=== PATIENT | male | born 1995 | race African-American/Black ===

== ENCOUNTER 2018-11-20 23:49 | Emergency (ER) | payer OTHER ==
[~2018-11-20] VITALS: Ht 167.6 cm; Wt 68.0 kg
[2018-11-20 23:49] VITALS: BP 144/83
[~2018-11-20 23:49] MED LIST: ALBU2.5V8 INH
[2018-11-21] MEDS ORDERED: HYDR-3164 PO (00:30)
[2018-11-21] MEDS ORDERED: SULF1TAB23 PO (00:30)
[2018-11-21] MEDS ORDERED: HYDROcodone/APAP 5/325MG 1 TAB TABLET PO ONE (00:30)
[2018-11-21] MEDS ORDERED: NAPROXEN 500 MG TABLET PO ONE (00:30)
[2018-11-21] MEDS ORDERED: NEOMY/BACITR/POLYMYXIN OINT PACKET. TP ONE (00:30)
--- NOTE | 2018-11-21 00:30 | PHYS DOC ---
Past Medical History Past Medical History: Asthma Past Surgical History: Tonsillectomy Alcohol Use: None Drug Use: None Adult General Chief Complaint Chief Complaint: ANIMAL BITE HPI HPI Patient is a 22 year old right handed male who presents with dog bites to the left hand. Patient got bit with family dog. He is reporting 10 out of 10 left hand pain described as throbbing and constant worse on range of motion. He states the dog is up-to-date with its shots. He states he is up-to-date with his tetanus. Review of Systems Review of Systems Constitutional: Denies fever or chills [] Musculoskeletal: Denies back pain or joint pain [] Integument: Reports dog bites to the left hand Neurologic: Denies headache, focal weakness or sensory changes [] All other systems were reviewed and found to be within normal limits, except as documented in this note. Current Medications Current Medications Current Medications Medications (Trade) Dose Ordered Sig/Felisha Start Time Stop Time Status Last Admin Dose Admin Acetaminophen/ Hydrocodone Bitart (Lortab 5/325) 2 tab 1X ONCE 11/21/18 00:30 11/21/18 00:31 11/20/18 23:59 2 TAB Naproxen (Naprosyn) 500 mg 1X ONCE 11/21/18 00:30 11/21/18 00:31 11/20/18 23:59 500 MG Neomycin/ Polymyxin/ Bacitracin (Triple Antibiotic Ointment) 1 pkt 1X ONCE 11/21/18 00:30 11/21/18 00:31 Allergies Allergies Allergies Coded Allergies Type Severity Reaction Last Updated Verified Fish Containing Products Allergy Unknown 07/02/14 No Physical Exam Physical Exam Constitutional: Well developed, well nourished, no acute distress, non-toxic appearance. [] Skin: See extremity Back: No tenderness, no CVA tenderness. [] Extremities: Left hand with no obvious deformity. Multiple superficial dog bites noted on the left dorsal and ventral hand including fingers. Lacerations are too many to count but none of them is deep along enough to require stitches. Neurovascular exam is intact to the left upper extremity. +2 left radial pulse. Cap refill less than 2 seconds the left fingers. Neurologic: Alert and oriented X 3, normal motor function, normal sensory function, no focal deficits noted. [] Psychologic: Affect normal, judgement normal, mood normal. [] Current Patient Data Vital Signs Vital Signs Date Time Temp Pulse Resp B/P (MAP) Pulse Ox O2 Delivery O2 Flow Rate FiO2 11/20/18 23:59 20 Room Air 11/20/18 23:49 99.0 95 144/83 (103) 99 99.0 EKG EKG [] Radiology/Procedures Radiology/Procedures [] Course & Med Decision Making Course & Med Decision Making Pertinent Labs and Imaging studies reviewed. (See chart for details) This is a 22-year-old male patient presenting to the ED today with dog bites to the left hand. Tetanus up-to-date. Left hand x-rays are negative for any acute findings. The dog bites were cleaned in the emergency room, Neosporin applied, clean dressing applied. Discharged on Augmentin. Provided return precautions. Dragon Disclaimer Dragon Disclaimer This electronic medical record was generated, in whole or in part, using a voice recognition dictation system. Departure Departure Impression: Primary Impression: Dog bite of left hand Disposition: HOME, SELF-CARE Condition: STABLE Referrals: NO PCP (PCP) Follow-up with your doctor in 1-2 weeks Patient Instructions: Animal Bite Additional Instructions: You have dog bites to the left hand. Keep the areas clean and dry. Apply Neosporin to the areas twice a day. Please take the prescribed antibiotics until completed. Follow-up with your own doctor in 1-2 weeks. Monitor the area for any worsening condition including increased redness, warmth, yellow drainage from the areas and return to the ED if they occur. Scripts Hydrocodone/Apap 5-325 (NORCO 5-325 TABLET) 1 Each Tablet 1 TAB PO Q6HRS, #10 TAB Prov: KEILA NDIAYE APRN 11/21/18 Sulfamethoxazole/Trimethoprim (BACTRIM 400-80 MG TABLET) 1 Each Tablet 1 TAB PO BID, #20 TAB Prov: KEILA NDIAYE APRN 11/21/18 Problem Qualifiers Primary Impression: Dog bite of left hand Encounter type: initial encounter Qualified Codes: S61.452A - Open bite of left hand, initial encounter; W54.0XXA - Bitten by dog, initial encounter KEILA NDIAYE APRN Nov 21, 2018 00:30
--- NOTE | 2018-11-21 09:26 | RAD ---
Left hand x-rays 3 views HISTORY: Dog bite of the left hand puncture wound. FINDINGS: Soft tissue emphysema related to penetrating injury at the dorsal hand as well as adjacent of the fifth metacarpal as well as soft tissue emphysema between the third through fifth MCP joints. No fracture or dislocation. No periosteal reaction or lytic bone destruction to suggest osteomyelitis. IMPRESSION: No acute osseous injury. Soft tissue injury as described above. Electronically signed by: Keyur Chatterjee MD (11/21/2018 9:23 AM) [facility]
== END 2018-11-21 00:43 | disposition home or self-care (01) ==
LOC: ER 11-21 00:33
DX: S61.452A Open bite of left hand, initial encounter (principal); J45.909 Unspecified asthma, uncomplicated; Z91.013 Allergy to seafood; W54.0XXA Bitten by dog, initial encounter; Y93.89 Activity, other specified; Y92.89 Other specified places as the place of occurrence of the external cause; Y99.8 Other external cause status
CPT/HCPCS: 73130; 99283; 99284

== ENCOUNTER 2019-07-30 21:27 | Emergency (ER) | payer OTHER ==
[~2019-07-30] VITALS: Ht 167.6 cm; Wt 65.9 kg
[~2019-07-30 21:27] MED LIST changes: +HYDR-3164 PO; +SULF1TAB23 PO
[2019-07-30 21:35] VITALS: BP 158/71
[2019-07-30] MEDS ORDERED: ALBUTEROL SULFATE 2.5 MG/3 ML NEBU. NEB ONE (22:30)
--- NOTE | 2019-07-30 23:30 | PHYS DOC ---
Past Medical History Past Medical History: Asthma (TAVO LENNON APRN) Past Surgical History: Tonsillectomy (TAVO LENNON APRN) Smoking Status: Never Smoker Alcohol Use: None Drug Use: None (TAVO LENNON APRN) Attending Signature I have participated in the care of this patient and I have reviewed and agree with all pertinent clinical information above including history, exam, and recommendations. (JOSUE SCHILLING MD) Adult General Chief Complaint Chief Complaint: SHORTNESS OF BREATH HPI HPI Patient is a 23 year old AA male who presents to the emergency department with complaints of shortness of breath. Patient states he has asthma and he does not have his inhaler at this time. He reports that the shortness of breath and wh eezing began last night. Patient denies any fever, ear pain, sore throat, nausea, vomiting, diarrhea, abdominal pain, body aches, or ear pain. Currently, he denies any chest pain or palpitations. Patient denies any pain at this time. (TAVO LENNON APRN) Review of Systems Review of Systems All other ROS is negative unless otherwise noted in HPI. (TAVO LENNON APRN) Current Medications Current Medications Current Medications Medications (Trade) Dose Ordered Sig/Felisha Start Time Stop Time Status Last Admin Dose Admin Albuterol Sulfate (Ventolin Neb Soln) 2.5 mg 1X ONCE 07/30/19 22:30 07/30/19 22:31 DC 07/30/19 22:19 2.5 MG Albuterol/ Ipratropium (Duoneb) 3 ml 1X ONCE 07/30/19 23:45 07/30/19 23:46 DC 07/30/19 23:40 3 ML Methylprednisolone Sodium Succinate (SOLU-Medrol 125MG VIAL) 125 mg 1X ONCE 07/30/19 23:45 07/30/19 23:46 DC 07/30/19 23:34 125 MG (JOSUE SCHILLING MD) Allergies Allergies Allergies Coded Allergies Type Severity Reaction Last Updated Verified Fish Containing Products Allergy Intermediate 07/30/19 No (JOSUE SCHILLING MD) Physical Exam Physical Exam Constitutional: Well developed, well nourished, no acute distress, non-toxic appearance. [] HENT: Normocephalic, atraumatic, bilateral external ears normal, oropharynx moist, no oral exudates, nose normal. [] Eyes: PERRLA, EOMI, conjunctiva normal, no discharge. [] Neck: Normal range of motion, no stridor. [] Cardiovascular:Heart rate regular rhythm Lungs & Thorax: Bilateral breath sounds expiratory wheezes throughout all ashby and diminished posterior bases bilaterally, no retractions, regular rate and speaks full sentences [] Skin: Warm, dry, no erythema, no rash. [] Back: No tenderness Extremities: No cyanosis, ROM intact Neurologic: Alert and oriented X 3, no focal deficits noted. [] Psychologic: Affect normal, judgement normal, mood normal. [] (TAVO LENNON APRN) Current Patient Data Vital Signs Vital Signs Date Time Temp Pulse Resp B/P (MAP) Pulse Ox O2 Delivery O2 Flow Rate FiO2 07/31/19 00:00 108 98 Room Air 07/30/19 21:35 98.1 16 158/71 (100) 98.1 (JOSUE SCHILLING MD) EKG EKG [] (TAVO LENNON APRN) Radiology/Procedures Radiology/Procedures [] (TAVO LENNON APRN) Course & Med Decision Making Course & Med Decision Making Pertinent Labs and Imaging studies reviewed. (See chart for details) [] (TAVO LENNON APRN) Dragon Disclaimer Dragon Disclaimer This electronic medical record was generated, in whole or in part, using a voice recognition dictation system. (TAVO LENNON APRN) Departure Departure Impression: Primary Impression: Asthma exacerbation Disposition: 01 HOME, SELF-CARE Condition: STABLE Referrals: NO PCP (PCP) Patient Instructions: Asthma Prevention-Brief, Asthma, Acute Bronchospasm Additional Instructions: Fill prescription(s) and use as directed. Avoid airway triggers such as smoke, fragrance, dust, and pollen. May take [id number] cough suppressants as needed. Follow-up with your primary care doctor this week, return to the ER if s ymptoms worsen. Scripts Prednisone (PREDNISONE) 50 Mg Tablet 1 TAB PO DAILY for 4 Days, #4 TAB 0 Refills Prov: TAVO LENNON APRN 07/31/19 Albuterol Sulfate (Proair Hfa) 8.5 Gm Hfa.aer.ad 2 PUFF IH PRN Q4-6HRS PRN for wheezing for 21 Days, #1 INHALER 0 Refills Prov: TAVO LENNON APRN 07/31/19 Problem Qualifiers Primary Impression: Asthma exacerbation Asthma severity: mild Asthma persistence: intermittent Qualified Codes: J45.21 - Mild intermittent asthma with (acute) exacerbation TAVO LENNON APRN Jul 30, 2019 23:30 JOSUE SCHILLING MD Jul 31, 2019 01:48
[2019-07-30] MEDS ORDERED: methylPREDNISolone SOD SUCC PF 125 MG/2 ML VIAL. IM ONE (23:45)
[2019-07-30] MEDS ORDERED: IPRATRPIUM/ALBUTEROL 0.5/2.5MG 3 ML NEBU. NEB ONE (23:45)
[2019-07-31] MEDS ORDERED: ALBU2.5V8 IH (00:13)
[2019-07-31] MEDS ORDERED: PRED50TA PO (00:13)
== END 2019-07-31 00:25 | disposition home or self-care (01) ==
LOC: ER 21:27
DX: J45.21 Mild intermittent asthma with (acute) exacerbation (principal); R06.02 Shortness of breath; J45.909 Unspecified asthma, uncomplicated; Z90.89 Acquired absence of other organs; Z91.013 Allergy to seafood
CPT/HCPCS: 94640; 94760; 96372; 99284; J2930; J7613; J7620

== ENCOUNTER 2020-02-25 18:58 | Emergency (ER) | payer OTHER ==
[~2020-02-25] VITALS: Ht 167.6 cm; Wt 178.0 kg
[~2020-02-25 18:58] MED LIST changes: +ALBU2.5V8 IH; +PRED50TA PO
[2020-02-25 19:00] VITALS: BP 151/83
[2020-02-25] MEDS ORDERED: predniSONE 10 MG TABLET PO ONE (19:15)
[2020-02-25] MEDS ORDERED: IPRATRPIUM/ALBUTEROL 0.5/2.5MG 3 ML NEBU. NEB ONE (19:15)
[2020-02-25] MEDS ORDERED: ALBU2.5V8 IH (19:17)
[2020-02-25] MEDS ORDERED: CETI10TA74 PO (19:17)
[2020-02-25] MEDS ORDERED: PRED50TA PO (19:17)
--- NOTE | 2020-02-25 19:17 | PHYS DOC ---
Past Medical History Past Medical History: Asthma (KEILA NDIAYE APRN) Past Surgical History: Tonsillectomy (KEILA NDIAYE APRN) Smoking Status: Never Smoker Alcohol Use: None Drug Use: None (KEILA NDIAYE APRN) General Adult EDM: Chief Complaint: SHORTNESS OF BREATH HPI: HPI: Patient is a 24 year old male with history of asthma who presents today complaining of shortness of breath and wheezing due to his asthma that began 2 weeks ago and got worse today when he cut grass. Patient denies any fever. (KEILA NDIAYE APRN) Review of Systems: Review of Systems: Constitutional: Denies fever or chills. [] Eyes: Denies change in visual acuity. [] HENT: Denies nasal congestion or sore throat. [] Respiratory: Reports shortness of breath and wheezing denies cough Cardiovascular: Denies chest pain or edema. [] GI: Denies abdominal pain, nausea, vomiting, bloody stools or diarrhea. [] : Denies dysuria. [] Musculoskeletal: Denies back pain or joint pain. [] Integument: Denies rash. [] Neurologic: Denies headache, focal weakness or sensory changes. [] Psychiatric: Denies depression or anxiety. [] (KEILA NDIAYE APRN) Heart Score: Risk Factors: Risk Factors: DM, Current or recent (<one month) smoker, HTN, HLP, family history of CAD, obesity. Risk Scores: Score 0 - 3: 2.5% MACE over next 6 weeks - Discharge Home Score 4 - 6: 20.3% MACE over next 6 weeks - Admit for Clinical Observation Score 7 - 10: 72.7% MACE over next 6 weeks - Early Invasive Strategies (KEILA NDIAYE APRN) Allergies: Allergies: Allergies Coded Allergies Type Severity Reaction Last Updated Verified Fish Containing Products Allergy Intermediate 07/30/19 No (KEILA NDIAYE APRN) Physical Exam: PE: Constitutional: Well developed, well nourished, no acute distress, non-toxic appearance. [] HENT: Normocephalic, atraumatic, bilateral external ears normal, oropharynx moist, no oral exudates, nose normal. [] Eyes: PERRLA, EOMI, conjunctiva normal, no discharge. [] Neck: Normal range of motion, no tenderness, supple, no stridor. [] Cardiovascular:Heart rate regular rhythm, no murmur [] Lungs & Thorax: Diffuse inspiratory and expiratory wheezes to posterior lung bases Abdomen: Bowel sounds normal, soft, no tenderness, no masses, no pulsatile masses. [] Skin: Eczema rash noted on the neck. Warm, dry, no erythema, no rash. [] Back: No tenderness, no CVA tenderness. [] Extremities: No tenderness, no cyanosis, no clubbing, ROM intact, no edema. [] Neurologic: Alert and oriented X 3, normal motor function, normal sensory function, no focal deficits noted. [] Psychologic: Affect normal, judgement normal, mood normal. [] (KEILA NDIAYE APRN) EKG: EKG: [] (KELIA NDIAYE APRN) Radiology/Procedures: Radiology/Procedures: [] (KEILA NDIAYE APRN) Course & Med Decision Making: Course & Med Decision Making Pertinent Labs and Imaging studies reviewed. (See chart for details) This is a 24-year-old male patient presenting today with asthma exacerbation. Patient was given DuoNeb treatment and prednisone in the ED. His O2 sats 100% on room air. Discharged with prednisone and albuterol inhaler. Follow-up with PCP in 1 to 2 weeks. yrte also recommended for his allergies (KEILA NDIAYE APRN) Course & Med Decision Making I have reviewed the PA/PR MANAGER's note and Plan of Care. I was available for consultation as needed during the patient's visit in the emergency department. I agree with the clinical impression, plans and disposition. (MIGUEL ANGEL LUTZ MD) Vick Disclaimer: Vick Disclaimer: This electronic medical record was generated, in whole or in part, using a voice recognition dictation system. (KEILA NDIAYE APRN) Departure Departure Impression: Primary Impression: Asthma exacerbation Qualified Codes: J45.21 - Mild intermittent asthma with (acute) exacerbation Disposition: HOME, SELF-CARE Condition: STABLE Referrals: NO PCP (PCP) Follow-up with your own doctor in 1 to 2 weeks Patient Instructions: Asthma, Adult, [id number] Additional Instructions: You were seen for asthma exacerbation. Use the prescribed medications as ordered. Follow-up with your own doctor in 1 to 2 weeks. Come back to the ED at any point symptoms worsen. Scripts Albuterol Sulfate (PROAIR HFA INHALER) 8.5 Gm Hfa.aer.ad 2 PUFF IH PRN Q4-6HRS PRN for wheezing for 21 Days, #1 INHALER 1 Refill Prov: KEILA NDIAYE APRN 02/25/20 Cetirizine Hcl (ZYRTEC) 10 Mg Tablet 1 TAB PO DAILY, #30 TAB 2 Refills Prov: KEILA NDIAYE APRN 02/25/20 Prednisone (PREDNISONE) 50 Mg Tablet 1 TAB PO DAILY, #5 TAB Prov: KEILA NDIAYE APRN 02/25/20 Justicifation of Admission Dx: Justifications for Admission: Justification of Admission Dx: N/A (KEILA NDIAYE APRN) KEILA NDIAYE APRN Feb 25, 2020 19:17 MIGUEL ANGEL LUTZ MD Feb 25, 2020 19:46
== END 2020-02-25 20:20 | disposition home or self-care (01) ==
LOC: ER 18:58
DX: J45.21 Mild intermittent asthma with (acute) exacerbation (principal); Z91.013 Allergy to seafood
CPT/HCPCS: 94640; 99283; J7512

== ENCOUNTER 2020-05-05 06:21 | Emergency (ER) | payer OTHER ==
[~2020-05-05] VITALS: Ht 167.6 cm; Wt 84.1 kg
[~2020-05-05 06:21] MED LIST changes: +CETI10TA74 PO
--- NOTE | 2020-05-05 06:32 | PHYS DOC ---
Past Medical History Past Medical History: Asthma Past Surgical History: Tonsillectomy Smoking Status: Never Smoker Alcohol Use: None Drug Use: None General Adult EDM: Chief Complaint: ASTHMA HPI: HPI: History obtained from patient. Patient is a 21-year-old male with past medical history significant for asthma who presents with complaint of shortness of breath. He states that his symptoms began approximately 6 hours prior to arrival when he tried to go to sleep he states every time he goes to his parents house he seems to have flares. He states they do have pets in the house but denies any allergy to pet dander. Denies any recent steroids or antibiotics. Is unsure whether he has been hospitalized for breathing issues in the past. Does not follow with channel marketing program manager. Does not have a rescue inhaler at home. Does note a mild dry cough. Does appreciate wheezing. States this feels similar to previous asthma flares. Denies any chest pain. Denies fevers. Denies vomiting. No other complaints. Review of Systems: Review of Systems: Constitutional: Denies fever or chills. [] Eyes: Denies change in visual acuity. [] HENT: Denies nasal congestion or sore throat. [] Respiratory: Positive for wheezing and shortness of breath Cardiovascular: Denies chest pain or edema. [] GI: Denies abdominal pain, nausea, vomiting, bloody stools or diarrhea. [] : Denies dysuria. [] Musculoskeletal: Denies back pain or joint pain. [] Integument: Denies rash. [] Neurologic: Denies headache, focal weakness or sensory changes. [] Endocrine: Denies polyuria or polydipsia. [] Lymphatic: Denies swollen glands. [] Psychiatric: Denies depression or anxiety. [] Heart Score: Risk Factors: Risk Factors: DM, Current or recent (<one month) smoker, HTN, HLP, family history of CAD, obesity. Risk Scores: Score 0 - 3: 2.5% MACE over next 6 weeks - Discharge Home Score 4 - 6: 20.3% MACE over next 6 weeks - Admit for Clinical Observation Score 7 - 10: 72.7% MACE over next 6 weeks - Early Invasive Strategies Allergies: Allergies: Allergies Coded Allergies Type Severity Reaction Last Updated Verified Fish Containing Products Allergy Intermediate 07/30/19 No Physical Exam: PE: Constitutional: Well developed, well nourished, no acute distress, non-toxic appearance. [] HENT: Normocephalic, atraumatic, bilateral external ears normal, oropharynx moist, no oral exudates, nose normal. [] Eyes: PERRLA, EOMI, conjunctiva normal, no discharge. [] Neck: Normal range of motion, no tenderness, supple, no stridor. [] Cardiovascular:Heart rate regular rhythm, no murmur [] Lungs & Thorax: Tachypneic. Speaking in full sentences. Inspiratory expiratory wheezes noted in all lung ashby. No accessory muscle usage noted. Abdomen: soft, no tenderness, no masses, no pulsatile masses. [] Skin: Warm, dry, no erythema, no rash. [] Back: No tenderness, no CVA tenderness. [] Extremities: No tenderness, no cyanosis, no clubbing, ROM intact, no edema. [] Neurologic: Alert and oriented X 3, normal motor function, normal sensory function, no focal deficits noted. [] Psychologic: Affect normal, judgement normal, mood normal. [] Current Patient Data: Vital Signs: Vital Signs Date Time Temp Pulse Resp B/P (MAP) Pulse Ox O2 Delivery O2 Flow Rate FiO2 05/05/20 06:22 98.0 110 20 99 98.0 EKG: EKG: [] Radiology/Procedures: Radiology/Procedures: [] Course & Med Decision Making: Course & Med Decision Making Pertinent Labs and Imaging studies reviewed. (See chart for details) [] Patient is a 23-year-old male who presents with chief complaint of shortness of breath and wheezing. He does note history of asthma and states this feels similar. Exam noted above. Patient was given breathing treatments and oral prednisone. On repeat examination his wheezing is resolved. He states his breathing now feels back to baseline. He was monitored and showed no signs of rebound wheezing. I do feel he is appropriate for discharge home. He will be discharged home with an albuterol inhaler. Also given a short course of steroids. He will be provided a list of primary care physicians to follow-up with. Return precautions discussed and understood. Stable for discharge home. Vick Disclaimer: Vick Disclaimer: This electronic medical record was generated, in whole or in part, using a voice recognition dictation system. Departure Departure Impression: Primary Impression: Asthma exacerbation Qualified Codes: J45.901 - Unspecified asthma with (acute) exacerbation Disposition: 01 DC HOME SELF CARE/HOMELESS Condition: STABLE Referrals: NO PCP (PCP) Patient Instructions: Asthma Prevention-Brief, Asthma, Adult Additional Instructions: [facility] [address] [place] [address] [facility] [address] [place] [address] [facility] [address] [place] [address] [facility] [address] [place] [address] [facility] [address] [place] [address] [address] [address] [place] [address] [facility] [place] [address] [place] [address] [employer] [facility] [address] [place] [address] [facility] [address] [place] [address] [facility] [address] [place] [address] Scripts Prednisone (PREDNISONE) 20 Mg Tablet 60 MG PO DAILY for 4 Days, #12 TAB Prov: RICHARD MATAMOROS DO 05/05/20 Albuterol Sulfate (Proair Hfa) 8.5 Gm Hfa.aer.ad 2 PUFF IH PRN Q4-6HRS PRN for wheezing for 21 Days, #1 INHALER 0 Refills Prov: RICHARD MATAMOROS DO 05/05/20 RICHARD MATAMOROS DO May 05, 2020 06:32
[2020-05-05] MEDS ORDERED: IPRATRPIUM/ALBUTEROL 0.5/2.5MG 3 ML NEBU. NEB ONE (07:00)
[2020-05-05] MEDS ORDERED: predniSONE 20 MG TABLET PO ONE (07:00)
[2020-05-05] MEDS ORDERED: PRED20TA PO (07:43)
[2020-05-05] MEDS ORDERED: ALBU2.5V8 IH (07:43)
[2020-05-05 08:31] VITALS: BP 148/65
== END 2020-05-05 08:31 | disposition home or self-care (01) ==
LOC: ER 06:21
DX: J45.901 Unspecified asthma with (acute) exacerbation (principal); Z91.013 Allergy to seafood
CPT/HCPCS: 94640; 99283; J7512

== ENCOUNTER 2020-05-28 11:54 | Emergency (ER) | payer OTHER ==
[~2020-05-28 11:54] MED LIST changes: +PRED20TA PO
== END 2020-05-28 13:16 | disposition left against medical advice (07) ==
LOC: ER 11:54
DX: R06.2 Wheezing (principal); Z53.21 Procedure and treatment not carried out due to patient leaving prior to being seen by health care provider